=== PATIENT | female | born 1960 | race Caucasian/White ===

== ENCOUNTER → 2016-08-10 | Outpatient (CLI) | payer OTHER | LOC: FIMAGING 12:14 | DX: Z12.31 Encounter for screening mammogram for malignant neoplasm of breast (principal) | CPT/HCPCS: G0202 ==

== ENCOUNTER → 2017-06-22 | Outpatient (CLI) | payer OTHER | LOC: FIMAGING 15:06 | PROVIDERS: ATTEND Nurse Practitioner | DX: R22.41 Localized swelling, mass and lump, right lower limb (principal); M79.604 Pain in right leg; Z79.01 Long term (current) use of anticoagulants; R93.6 Abnormal findings on diagnostic imaging of limbs ==

== ENCOUNTER → 2017-09-07 | Outpatient (CLI) | payer OTHER | LOC: FIMAGING 08:12 | PROVIDERS: ATTEND Internal Medicine | DX: Z12.31 Encounter for screening mammogram for malignant neoplasm of breast (principal) ==

== ENCOUNTER → 2018-03-02 | Outpatient (CLI) | payer OTHER ==
[~2018-03-02] MED LIST: FAMOTIDINE 20 MG/NACL 50 ML IV ONE; IOPAMIDOL (ISOVUE 370) 100 ML BTL IV ONE; methylPREDNISolone SOD SUCC 125 MG/2 ML VIAL IVP ONE
== END ==
LOC: FIMAGING 14:19
PROVIDERS: ATTEND Internal Medicine
DX: R06.09 Other forms of dyspnea (principal); D68.61 Antiphospholipid syndrome; Z86.711 Personal history of pulmonary embolism; Z87.898 Personal history of other specified conditions
CPT/HCPCS: J1200; J2930; Q9967

== ENCOUNTER → 2018-05-26 | Outpatient (CLI) | payer OTHER | LOC: FIMAGING 17:01 | PROVIDERS: ATTEND Nurse Practitioner | DX: M79.89 Other specified soft tissue disorders (principal); D50.8 Other iron deficiency anemias; Z79.01 Long term (current) use of anticoagulants ==

== ENCOUNTER → 2018-09-02 | Outpatient (CLI) | payer OTHER | LOC: FIMAGING 13:16 ==

== ENCOUNTER → 2018-09-13 | Outpatient (CLI) | payer OTHER | LOC: FIMAGING 13:15 ==

== ENCOUNTER → 2018-10-03 | Outpatient (CLI) | payer OTHER | LOC: FIMAGING 14:37 ==